=== PATIENT | female | born 1960 | race Caucasian/White ===

== ENCOUNTER 2022-02-02 04:56 | Day surgery (SDC) | payer BC ==
[~2022-02-02 04:56] MED LIST: FAMOTIDINE 20 MG IV ONE; Versed 2 MG/2 ML Injection IV ONE
[2022-02-02] MEDS ORDERED: DEXMEDETOMIDINE 80 MCG/20ML-NS IV ONE (04:57)
[2022-02-02] MEDS ORDERED: Transderm Scop 1.5MG Patch TOP PRN (04:57)
[2022-02-02] MEDS ORDERED: CEFAZOLIN 2 GM-D5W BAG** 2 GM/50 ML ML IV SCH (05:00)
[2022-02-02] MEDS ORDERED: Lactated Ringers 1,000 ML IV SCH (05:00)
[2022-02-02] MEDS ORDERED: Pepcid 20 MG VIAL IV ONE ×2 (05:40→06:00)
[2022-02-02] MEDS ORDERED: Lactated Ringers 1,000 ML IV ONE (05:41)
[2022-02-02] MEDS ORDERED: Reglan 10 MG/2 ML IV ONE (06:06)
[2022-02-02] MEDS ORDERED: Decadron 4 MG INJ ONE (06:15)
[2022-02-02] MEDS ORDERED: Naropin 0.5% 30 ML VIAL ONE (06:15)
[2022-02-02] MEDS ORDERED: Zofran 4 MG/2 ML VIAL ONE (06:15)
[2022-02-02] MEDS ORDERED: Xylocaine-Mpf 2% 5 Ml Vial ONE (06:15)
[2022-02-02] MEDS ORDERED: DIPRIVAN 200 MG/20 ML IV ONE ×2 (06:16→07:31)
[2022-02-02] MEDS ORDERED: SUBLIMAZE 100 MCG/2 ML ONE (06:19)
[2022-02-02] MEDS ORDERED: Magnesium Sulfate 1 GM/2 ML VIAL ONE (06:23)
[2022-02-02] MEDS ORDERED: Pre-Attached Lta Kit TP ONE (06:24)
[2022-02-02] MEDS ORDERED: OFIRMEV 100 ML IV ONE (06:24)
[2022-02-02] MEDS ORDERED: KEFZOL 1 GM ONE (07:28)
[2022-02-02] MEDS ORDERED: Ephedrine Sulfate 50 MG/ML ONE (08:07)
[2022-02-02] MEDS ORDERED: Zemuron 100 MG/10 ML ONE (08:07)
[2022-02-02] MEDS ORDERED: BRIDION 200MG/2ML IV ONE (08:16)
--- NOTE | 2022-02-02 09:28 | XRAY ---
Indication: Left calcaneal exostectomy. Intraoperative fluoroscopy provided for 35 seconds. 9 digital spot images submitted for interpretation ultimately demonstrates partial resection posterior calcaneus. Correlate with intraoperative findings/report.
[2022-02-02 09:47] VITALS: O2SAT 99
[2022-02-02 10:23] VITALS: BP 134/89; PULSE 79
--- NOTE | 2022-02-02 12:35 | XRAY ---
35 seconds fluoroscopy time in surgery for left calcaneal exosectomy.
--- NOTE | 2022-02-05 11:30 | OP ---
SURGERY DATE: 02/02/2022 0700 PREOPERATIVE DIAGNOSES: 1) Achilles tendon insertional tendonitis and tendinopathy. 2) Tisha's deformity. 3) Calcaneal spur. 4) Left ankle pain. POSTOPERATIVE DIAGNOSES: 1) Achilles tendon insertional tendonitis and tendinopathy. 2) Tisha's deformity. 3) Calcaneal spur. 4) Left ankle pain. PROCEDURE S: 1) Achilles tendon detachment, debridement and advancement. 2) Posterior-superior calcaneal exostectomy. SURGEON: Beni Bowers DPM. MANUFACTURING TECHNOLOGY ANALYST: None. ANESTHESIA: General. HEMOSTASIS: Thigh tourniquet set to 350 mm of Mercury for 40 total tourniquet minutes. ESTIMATED BLOOD LOSS: Less than 5 cc. MATERIALS: 4-0 Monocryl, 3-0 Nylon, 2-0 Nylon, suture guard, Rashaun SpeedBridge Achilles, two - 2.9 JuggerKnot with broadband and two - Quattro Link. INDICATION FOR PROCEDURE: Soila is a very pleasant 62-year-old female who presented to my service after having seen multiple providers for issue to her left heel. The patient has a significant amount of pain at the insertion of the Achilles tendon to the posterior-superior calcaneus. The patient had pain with palpation within Kager's triangle and at a pinpoint at the middle third of the calcaneal insertion of the Achilles tendon. The patient was advised that she failed night splints, stretching exercises, physical therapy and other conservative modalities as well as shoe gear modifications prior to making the decision. She has seen multiple providers for this issue and wishes to proceed at this time. The patient understands there have been no guarantees provided as to the outcome of surgical intervention. There were plenty of complications that were discussed with the patient including but not limited to infection, hematoma, seroma, possibility of delayed wound healing, delayed skin healing, delayed tendon to bone interface and possibility of failure of surgical intervention. All of these were discussed with the patient at length which she understands and wishes to proceed. DESCRIPTION OF PROCEDURE AND FINDINGS: At this time the patient was brought to the OR and placed under anesthesia on the cart. At this time a well-padded thigh tourniquet was applied to the left thigh and then the patient was flipped onto the table carefully into the prone position. The left lower extremity was prepped and draped in the typical sterile fashion and lowered onto the surgical field. At this time attention was directed to the posterior aspect of the calcaneus where a linear line was made in line with the calcaneus and the central aspect of the Achilles tendon. At this time the tourniquet was inflated to 350 mm of Mercury. At this time an incision was made utilizing a 10 blade straight to the level of the paratenon making sure to keep full thickness flaps through this portion of the procedure. At this time the Achilles tendon was then split down the center and an inverted T-incision was performed at the distal aspect of the calcaneus exposing the spur as well as the Tisha's deformity. At this time a sagittal saw was introduced and resected the posterior calcaneal spur as well as the Tisha's deformity. Following this, a power rasp was utilized to smooth down the surface of the bone until the adequate shape was maintained. At this time copious amounts of sterile saline was utilized to flush the surgical site. The Achilles tendon was then palpated for any calcifications and cleaned out removing any calcifications that were identified and these were handed off the field. The retrocalcaneal bursa was then removed. From that standpoint once again copious amounts of sterile saline were utilized to flush the site. A good amount of time was utilized to clean out the calcifications within the Achilles tendon. Following this, Achilles tendon JuggerKnot was introduced into the proximal row of the calcaneus and taken out of the Achilles tendon proximally. Two Quattro Links were introduced to the distal aspect of the calcaneus under fluoroscopic guidance and then under tension, an inverted row was performed with SpeedBridge. Following this after having tension in the tendon the anchors were utilized to lift the leg off the table insuring adequate strength and bite within the bone. At this time copious amounts of sterile saline were utilized to flush the surgical site. Final shots were taken on fluoroscopy. The subcutaneous paratenon was repaired utilizing a running continuous 4-0 Monocryl as well as a simple interrupted subcutaneous suture as well as 3-0 Nylon in horizontal mattress-type fashion and a vertical mattress through a suture guard to protect the surgical site. Following this the tourniquet was let down. Total tourniquet time was 40 minutes. A dressing consisting of Betadine, Adaptic, 4x4's, Kerlix and JANETTE as well as a well-padded posterior splint with the foot 45 degrees relative to the longitudinal axis of the leg. The patient was then reversed from anesthesia and returned to the postoperative anesthesia care unit with vital signs stable and vascular status intact. The patient handled the anesthesia and the surgery without complication. Postoperative orders as indicated in the patient's discharge chart.
== END 2022-02-02 10:10 | disposition home or self-care (01) ==
LOC: SDC 04:56
PROVIDERS: ATTEND Podiatrist Foot & Ankle Surgery
DX: M76.62 Achilles tendinitis, left leg (principal); M92.62 Juvenile osteochondrosis of tarsus, left ankle; M77.32 Calcaneal spur, left foot; M25.572 Pain in left ankle and joints of left foot
CPT/HCPCS: 27650; 28120; 64450; 73610; 76000; 76937; 76942; C1713; J0690; J1100; J2250; J2405; J2704; J2795; J3010; J3475; A9270-GY

== ENCOUNTER 2022-02-23 04:58 | Day surgery (SDC) | payer BC ==
[2022-02-23] MEDS ORDERED: Lactated Ringers 1,000 ML IV SCH (05:00)
[2022-02-23] MEDS ORDERED: KEFZOL 1 GM** 3 G in Sodium Chloride 0.9% 50 ML 50 ML IV SCH (05:15)
[2022-02-23] MEDS ORDERED: Transderm Scop 1.5MG Patch ONE (05:52)
[2022-02-23] MEDS ORDERED: Zofran 4 MG/2 ML VIAL ONE (05:56)
[2022-02-23] MEDS ORDERED: Xylocaine-Mpf 2% 5 Ml Vial ONE (05:56)
[2022-02-23] MEDS ORDERED: SUBLIMAZE 100 MCG/2 ML ONE (05:56)
[2022-02-23] MEDS ORDERED: Decadron 4 MG INJ ONE ×2 (05:56→06:02)
[2022-02-23] MEDS ORDERED: BRIDION 200MG/2ML IV ONE (05:56)
[2022-02-23] MEDS ORDERED: Zemuron 100 MG/10 ML ONE (05:56)
[2022-02-23] MEDS ORDERED: TORAdol 30 mg Injection ONE (05:56)
[2022-02-23] MEDS ORDERED: DIPRIVAN 200 MG/20 ML IV ONE (05:56)
[2022-02-23] MEDS ORDERED: DEXMEDETOMIDINE 80 MCG/20ML-NS IV ONE (06:02)
[2022-02-23] MEDS ORDERED: Marcaine 0.5%/Epinephrine 10 ML ONE (06:02)
[2022-02-23] MEDS ORDERED: OFIRMEV 100 ML IV ONE (06:06)
[2022-02-23] MEDS ORDERED: KEFZOL 1 GM ONE (06:07)
[2022-02-23] MEDS ORDERED: Ephedrine Sulfate 50 MG/ML ONE (07:07)
[2022-02-23] MEDS ORDERED: Lactated Ringers 1,000 ML IV ONE (07:41)
--- NOTE | 2022-02-23 09:18 | XRAY ---
Indication: Left Achilles tendon rupture repair. Intraoperative fluoroscopy provided for 5 seconds. 3 digital spot images submitted for interpretation demonstrates partial osteotomy posterior calcaneus with overlying postsurgical soft tissue changes. Correlate with intraoperative findings/report.
[2022-02-23 10:59] VITALS: O2SAT 92
[2022-02-23 11:08] VITALS: BP 159/93; PULSE 104
--- NOTE | 2022-02-23 11:42 | OP ---
SURGERY DATE/TIME: 02/23/2022 0626 PREOPERATIVE DIAGNOSES: 1) Achilles tendon rupture left ankle. 2) Left ankle pain. 3) Subacute presentation. 4) Difficulty with ambulation. POSTOPERATIVE DIAGNOSES: 1) Achilles tendon rupture left ankle. 2) Left ankle pain. 3) Subacute presentation. 4) Difficulty with ambulation. PROCEDURE: Primary Achilles tendon rupture repair as well as gastrocnemius resection. SURGEON: Beni Bowers DPM. RETURN AGENT: None. ANESTHESIA: General plus a preoperative popliteal block. See anesthesia report for details. ESTIMATED BLOOD LOSS: Less than 20 cc. MATERIALS: 4.0 Monocryl, suture guards, 3-0 Nylon, 2-0 Nylon, Rashaun BroadBand, whipstitch, two - 5.5 Quattro Link and GeneX bone graft to fill previous ankle holes. INDICATION FOR SURGERY: Soila is a very pleasant 62-year-old female who within the last three weeks underwent an Achilles tendon debridement as well as posterior superior calcaneal exostectomy. Five days postoperative the patient fell in the bathroom landing on her foot and experiencing a tear and pain at the posterior aspect of her heel resulting in an Achilles tendon rupture. MRI demonstrated a 4 cm deficit approximately two weeks ago of the Achilles tendon and a complete rupture. Options were discussed with the patient in regards to addressing this surgically and nonsurgically. The patient understands that with the nonsurgical approach the postoperative period is prolonged and the potential for risk of tendon rerupture is as high as 12% as compared to repair where there are more complications as a result of re-intervening from a surgical standpoint including but not limited to infection, possibility of delayed skin healing, nonskin healing, possibility of rerupture at a high rate of around 5% with a slightly decreased postoperative period. Patient opted for the surgical option. At this time no guarantees were provided as to the outcome given that this is a subacute presentation. Options were discussed in order to prevent further complication and potential need for a tendon transfer or potential gastrocnemius resection or lengthening during the procedure which were possibilities. The patient understands all risks, complications and benefits of the procedure. No guarantees were provided as to the outcome. It is with that we decided to proceed. DESCRIPTION OF PROCEDURE AND FINDINGS: The patient is brought into the OR and placed on the OR table in the prone position. At this time general anesthesia was administered until the patient was sedated. At this time a well-padded thigh tourniquet was applied to the patient's left thigh and the tourniquet was set to 350 mm of Mercury. The left lower extremity was prepped and draped in the typical sterile fashion and lowered onto the surgical field. At this time the incision was made at the proximal extent of the previous surgical site where a Tisha's deformity was resected this was approximately 4 cm above the insertion of the Achilles tendon. The Achilles tendon remnant proximally was retrieved gaining tension utilizing Allis clamps. A whipstitch was utilized to gather the tendon ends to one another and gain traction on the tendons. At this time approximating for the tendon, the foot would have been plantar flexed to approximately 60 degrees and in order to expedite physical therapy, the decision was made to proceed with gastrocnemius resection. An incision at the posterior medial aspect of the calf at the palpable dell of the gastrocnemius muscle belly was identified. The incision was deepened utilizing blunt dissection to the level of the fascia. The fascia was then incised. A pediatric speculum was then introduced and resection of the gastrocnemius aponeurosis was performed. At this time the tendons did reapproximate to approximately 45 degrees plantar flexion at the same ankle point. The tendon was then re-approximated utilizing two - 5.5 Quattro Links getting the multiple drill holes within the bone in close proximity of time. The remaining drill holes were coapted utilizing GeneX Bone Graft to fill previous ankle holes. At this time a Melara's test was performed and deemed to be adequate as well as Matles test demonstrating a 45 degree plantar flexion position. At this time the incisions were coapted utilizing 4-0 Monocryl, suture guards at the Achilles tendon surgical site in a vertical mattress-type fashion and 3-0 Nylon in a horizontal mattress-type fashion for all remaining suture sites. A dressing consisting Betadine, Adaptic, 4x4, Kerlix, cast padding and a well-padded posterior splint with Sugar Tong was applied to the left lower extremity with the foot plantar flexed approximately 45 degrees. The patient then was reversed from anesthesia and returned to the postoperative anesthesia care unit with vital signs stable and vascular status intact. The patient handled the anesthesia as well as procedure without significant complication. Postoperative orders as indicated in the patient's discharge chart.
--- NOTE | 2022-02-23 13:13 | XRAY ---
5 seconds of fluoroscopy was used in surgery for a Left Achilles tendon rupture repair.
== END 2022-02-23 10:40 | disposition home or self-care (01) ==
LOC: SDC 04:58
PROVIDERS: ATTEND Podiatrist Foot & Ankle Surgery
DX: S86.012A Strain of left Achilles tendon, initial encounter (principal); M25.572 Pain in left ankle and joints of left foot; R26.2 Difficulty in walking, not elsewhere classified
CPT/HCPCS: 27652; 27687; 73630; 76000; 76937; 76942; C1713; 64447; 64450; J0690; J1100; J1885; J2405; J2704; J3010; A9270-GY